=== PATIENT | female | born 1960 | race Caucasian/White ===

== ENCOUNTER 2021-02-19 05:38 | Outpatient (CLI) | payer OTHER ==
[~2021-02-19] VITALS: Ht 165.1 cm; Wt 68.2 kg
[2021-02-22] MEDS ORDERED: MV-M1TAB57 PO (13:32)
[2021-02-22] MEDS ORDERED: OMEP20TA7 PO (13:32)
== END 2021-02-22 13:38 | disposition home or self-care (01) ==
LOC: PREOP 05:38
PROVIDERS: ATTEND Obstetrics & Gynecology
DX: Z01.818 Encounter for other preprocedural examination (principal)

== ENCOUNTER 2021-02-26 06:06 | Day surgery (SDC) | payer OTHER ==
[2021-02-26] VITALS (10 sets, daily range): BP systolic 114–141; BP diastolic 57–93
[~2021-02-26] VITALS: Ht 165 cm; Wt 68.2 kg
[~2021-02-26 06:06] MED LIST: MV-M1TAB57 PO; OMEP20TA7 PO
[2021-02-26] MEDS ORDERED: ceFAZolin 2 GM IV Premixed 50 ML IV ONE (06:15)
[2021-02-26] MEDS ORDERED: metroNIDAZOLE 500MG/100ML IVPB 100 ML IV ONE (06:15)
[2021-02-26] MEDS ORDERED: LACTATED RINGERS 1,000 ML IV PRN (06:15)
[2021-02-26 06:22] LABS: BILIRUBIN,URINE NEGATIVE (NEGATIVE); CLARITY,URINE CLEAR; COLOR,URINE YELLOW; GLUCOSE, URINE (UA) NEGATIVE (NEGATIVE); KETONES,URINE 1+ (NEGATIVE); LEUKOCYTE ESTERASE ,URINE 1+ (NEGATIVE); NITRITE,URINE NEGATIVE (NEGATIVE); PROTEIN,URINE NEGATIVE (NEGATIVE)
[2021-02-26] MEDS ORDERED: LIDOCAINE PF 2% 5 ML (XYLOCAINE) VIAL ONE (06:48)
[2021-02-26] MEDS ORDERED: MIDAZOLAM 2 MG/2 ML (VERSED) VIAL ONE (06:48)
[2021-02-26] MEDS ORDERED: ONDANSETRON 4 MG/2 ML (SDV) Z0FRAN ONE ×2 (06:48→06:58)
[2021-02-26] MEDS ORDERED: SEVOFLURANE (ULTANE) 15 ML INHAL SOLN ONE ×2 (06:48→10:55)
[2021-02-26] MEDS ORDERED: proPOfol 200 MG/20 ML (DIPRIVAN) VIAL IV ONE (06:48)
[2021-02-26] MEDS ORDERED: fentaNYL INJ 100 MCG/2 ML AMP ONE (06:48)
[2021-02-26] MEDS ORDERED: NS (IVPB) 100 ML ONE (06:54)
[2021-02-26] MEDS ORDERED: VASOPRESSIN INJECTION 20 UNIT/ML VIAL ONE (06:54)
[2021-02-26] MEDS ORDERED: LIDOCAINE/EPI 1%-1:200,000 (XYLOCAINE) 30 ML VIAL ONE (06:54)
[2021-02-26] MEDS ORDERED: ESTRADIOL VAGINAL CREAM 42.5 GM (ESTRACE) VG ONE (06:54)
[2021-02-26] MEDS ORDERED: FAMOTIDINE 20MG/2ML IV (PEPCID) ONE (06:58)
[2021-02-26] MEDS ORDERED: SCOPOLAMINE 1.5 MG (TRANSDERM-SCOP) PATCH ONE (06:58)
[2021-02-26] MEDS ORDERED: metroNIDAZOLE 500MG/100ML IVPB 100 ML ONE (06:58)
[2021-02-26] MEDS ORDERED: ceFAZolin 2 GM IV Premixed 50 ML ONE (06:59)
[2021-02-26 07:00] LABS: BASOPHILS # (AUTO) 0.1 10^3/uL (0.0-0.1); BASOPHILS % (AUTO) 1 % (0-10); EOSINOPHILS # (AUTO) 0.6 10^3/uL (0.0-0.3); EOSINOPHILS % (AUTO) 8 % (0-10); HEMATOCRIT 37 % (35-52); HEMOGLOBIN 12.4 g/dL (11.5-16.0); LYMPHOCYTES # (AUTO) 3.3 10^3/uL (1.0-4.0); LYMPHOCYTES % (AUTO) 41 % (12-44); MEAN CORPUSCULAR HEMOGLOBIN 31 pg (25-34); MEAN CORPUSCULAR HGB CONC 33 g/dL (32-36); MEAN CORPUSCULAR VOLUME 94 fL (80-99); MEAN PLATELET VOLUME 10.6 fL (9.0-12.2); MONOCYTES % (AUTO) 12 % (0-12); NEUTROPHILS # (AUTO) 3.1 10^3/uL (1.8-7.8); NEUTROPHILS % (AUTO) 39 % (42-75); PLATELET COUNT 368 10^3/uL (130-400)
[2021-02-26] MEDS ORDERED: FAMOTIDINE 20MG/2ML IV (PEPCID) IV ONE (07:00)
[2021-02-26] MEDS ORDERED: SCOPOLAMINE 1.5 MG (TRANSDERM-SCOP) PATCH TOP ONE (07:00)
[2021-02-26] MEDS ORDERED: ONDANSETRON 4 MG/2 ML (SDV) Z0FRAN IV ONE (07:00)
[2021-02-26 07:05] LABS: BACTERIA,URINE FEW /HPF
--- NOTE | 2021-02-26 07:57 | Progress Note-Pre Operative ---
Pre-Operative Progress Note H&P Reviewed The H&P was reviewed, patient examined and no changes noted. Date Seen by Provider: Feb 26, 2021 Time Seen by Provider: 08:00 Date H&P Reviewed: Feb 26, 2021 Time H&P Reviewed: 08:00 Pre-Operative Diagnosis: incomplete uterovaginal prolapse, stress incontinence FARHAN DALLAS DO Feb 26, 2021 07:57
--- NOTE | 2021-02-26 08:21 | Progress Note-Pre Operative ---
Pre-Operative Progress Note H&P Reviewed The H&P was reviewed, patient examined and no changes noted. Date Seen by Provider: Feb 26, 2021 Time Seen by Provider: 08:21 Date H&P Reviewed: Feb 26, 2021 Time H&P Reviewed: 08:21 Pre-Operative Diagnosis: LUIS HORN MD Feb 26, 2021 08:21
--- NOTE | 2021-02-26 08:45 | Progress Note-Post Operative ---
Post-Operative Progess Note Surgeon (s)/Insurance Verification Representative (s) Surgeon LUIS ANTONIO MD Insurance Verification Representative: FARHAN DALLAS DO Pre-Operative Diagnosis ABDIEL Post-Operative Diagnosis SAME Procedure & Operative Findings Date of Procedure 02/26/21 Procedure Performed/Findings PVS AND CYSTOSCOPY Anesthesia Type GENERAL Estimated Blood Loss Estimated blood loss (mL): NEGLIGIBLE Specimens/Packing Specimens Removed NONE Packing: ESTRACE VAG PACK LUIS ANTONIO MD Feb 26, 2021 08:45
[2021-02-26] MEDS ORDERED: HYDROmorphone 2 MG/ML VIAL (DILAUDID) ONE (08:52)
[2021-02-26] MEDS ORDERED: GLYCOPYRROLATE 0.2 MG/ML (ROBINUL) 2 ML VIAL ONE (09:56)
[2021-02-26] MEDS ORDERED: NEOSTIGMINE 3 MG/3 ML VIAL ONE (09:56)
[2021-02-26] MEDS ORDERED: KETOROLAC 30 MG/ML VIAL ONE (10:26)
[2021-02-26] MEDS: KETOROLAC 30 MG/ML VIAL IV SCH ×2 (10:30→17:54)
--- NOTE | 2021-02-26 10:44 | Operative Report ---
Operative Report Date of Procedure/Surgery Feb 26, 2021 Surgeon (s) FARHAN DALLAS DO Intermediate Card Tender (s): Pablo Pederson, MS III Post-Operative Diagnosis SAME Procedure Performed RATH, BSO, Anterior colporrhaphy PV sling ([place]) Description of Procedure Anesthesia Type: General Estimated blood loss (mL): minimal Specimen(s) collected/removed uterus, tubes and ovaries Packing: ESTRACE VAG PACK Description of the Procedure After informed consent was obtained, patient was taken into the operating room where general anesthetic was found to be adequate. She was prepped and draped in the usual sterile fashion in the dorsal lithotomy position. A Hernandez catheter was placed. A speculum was placed in the vagina. The cervix was visualized and the anterior lip was grasped with a sharp toothed tenaculum. The uterus was then noted to be prolapsed out of the vagina about 4 cm. There was a cystocele, but there was still posterior support and minimal rectocele. It was then reduced and sounded to a depth was approximately 6.5 centimeters. I placed the Jessica device (6 cm) and a 3.5 cm collar was advanced over the cervix. I inserted the Jessica without difficulty, inflating the balloon and securing it around the fornix of the cervix. The collar was then secured with sutures at 12 o'clock. Attention was then turned to the patient's abdomen. The skin was injected with 0.1% lidocaine with epinephrine. A supraumbilical incision was made about 8 mm in length. A Veress needle was inserted and I confirmed intraabdominal placement with a drop in pressure and the saline drop test. The opening pressure was 6 mmHg. I then insufflated the abdomen to a maximum of 15 mmHg with warmed CO2 gas. I placed an additional 8 mm trocar in the left abdomen lateral to the umbilicus approximately 15 cm lateral. The second and third robotic port was placed about 12 cm lateral to the right and left of the umbilical placement. 0.1% lidocaine with epinephrine was injected prior to placement of all trocars. These were 8 mm trocars. These were placed under direct visualization of the laparoscope. When all placements were confirmed, the patient was placed in steep Trendelenburg al lowing adequate visualization. The robot was brought in for docking. The docking was accomplished without difficulty. It was noted that the surgery could be accomplished robotically I then took over the command of the robot utilizing the synchroseal and monopolar carmen. I visualized the round ligaments bilaterally and grasped them and cauterized with bipolar cautery and then cut with my carmen. I then grasped the infundibulopelvic ligaments bilaterally with the synchroseal and then cut with the monopolar carmen. I then moved my dissection to the posterior leaves of the broad ligament. I dissected the posterior leaves of the broad ligament off the uterine arteries skeletonizing them bilaterally. I then took a second clamp with the synchroseal and with the carmen, transected the vessels away from the lateral aspect to the cervical stroma. I dissected the anterior peritoneum off the lower uterine segment. I continually pushed the bladder back and I took excessively great care and I was eventually able to dissect the vesicouterine peritoneum off the lower uterine segment. the high school assistant principal took great care to elevate the uterus into the abdomen toward the patient's head to prevent ureteral injury. I then dissected in a V fashion towards the midline between the uterosacral ligaments. This allowed me to skeletonize the uterine vessels bilaterally. The balloon on the JESSICA was insufflated. This allowed me to see the JESSICA circumferentially. I then performed a colpotomy anteriorly and then amputate with cervix away from the vaginal fornix. I then continued the colpotomy circumferentially. Once this was performed, the high school assistant principal removed the uterus through the vagina. The high school assistant principal then left a sponge in the vagina to maintain the pneumoperitoneum. . I then began closure of the vaginal cuff. I closed the apices of the vaginal cuff with 2-0 Vicryl V lock sutures with a colposuspension through the uterosacral ligaments. This suspended the apices of the vaginal cuff. I extended this to the midline from both sides and overlapped the V lock sutures in the midline. Excellent closure is noted and hemostasis is achieved. All the needles were removed from the patient's abdomen. Now, the robotic instruments were removed and the robot was docked back to laparoscopy. The pelvis was irrigated. There was no active bleeding noted. Bilateral ureters were seen the entire time during the surgery and were peristalsing. There was no excessive bleeding noted. The trocars were removed under direct visualization. The laparoscopic sites were visualized and found to be hemostatic. The skin incisions were closed with 4-0 Monocryl in a subcuticular fashion and then with Skin Affix. Op sites were placed over the incision sites. The instruments were removed from the vagina and I noted there were no abrasions. Attention was now turned to the vagina. The anterior vaginal epithelium was grasped in the midline with Allis clamps. I then injected the vaginal epithelium with dilute vasopressin. A Midline incision was made and the vaginal epithelium was then dissected off the vesicovaginal fascia laterally to the white line. I then plicated the anterior vaginal fascia in the midline with interrupted stitches of 2-0 Vicryl. Due to the large cystocele, two layers were used. I then excised the excess vaginal epithelium. At this point, Dr. Malloy placed the pubovaginal sling and this will be dictated under separate cover. I closed the incision with 2-0 Vicryl in a running fashion. Vaginal estrogen cream was then placed in the vagina and the vagina was packed with vaginal packing. Sponge, lap, needle and instrument counts correct times two. Patient was awakened and taken to recovery in a stable condition Findings of the Procedure 4+ cystocele 3-4+ uterine prolapse small rectocele Stress incontinence Allergies and Home Medications Allergies Coded Allergies: No Known Drug Allergies (Unverified , 02/26/21) Patient Home Medication List Home Medication List Reviewed: Yes Acetaminophen (Acetaminophen) 500 Mg Tablet, 1,000 MG PO Q8HR Prescribed by: FARHAN DALLAS on 02/26/211333 Ciprofloxacin HCl (Cipro) 500 Mg Tablet, 500 MG PO BID Prescribed by: JUAN JOSÉ ZEPEDA on 02/27/21 1000 Docusate Sodium (Docusate Sodium) 100 Mg Capsule, 100 MG PO BID Prescribed by: FARHAN DALLAS on 02/26/21 133 Ibuprofen (Ibu) 600 Mg Tablet, 600 MG PO Q6HR Prescribed by: FARHAN DALLAS on 02/26/21 133 Mv-Mn/Folic Acid/Calcium/Vit K (Women's 50 Plus Multivit Tab) 1 Each Tablet, 1 EACH PO DAILY, (Reported) Entered as Reported by: TRENTON HOWARD on 02/22/211331 Last Action: Reviewed Omeprazole (Omeprazole) 20 Mg Tablet., 20 MG PO BID, (Reported) Entered as Reported by: TRENTON HOWARD on 02/22/211331 Last Action: Reviewed Simethicone (Simethicone) 80 Mg Tab.chew, 80 MG PO Q6H PRN for GAS Prescribed by: FARHAN DALLAS on 02/26/211334 FARHAN DALLAS DO Feb 26, 2021 10:44
[2021-02-26] MEDS ORDERED: ONDANSETRON 4 MG (ZOFRAN) ORAL DISSOLVE TAB PO PRN (10:45)
[2021-02-26] MEDS ORDERED: morphine INJ 4 MG/ML 1 ML (VIAL/SYRINGE) IV PRN (10:45)
[2021-02-26] MEDS ORDERED: CHLORASEPTIC LOZENGE MM PRN (10:45)
[2021-02-26] MEDS ORDERED: NALOXONE 0.4 MG/ML 1 ML (NARCAN) VIAL IV PRN ×2 (10:45)
[2021-02-26] MEDS ORDERED: SIMETHICONE 40 MG/0.6 ML (MYLICON DROPS) 30 ML BTL PO PRN (10:45)
[2021-02-26] MEDS ORDERED: ONDANSETRON 4 MG/2 ML (SDV) Z0FRAN IVP PRN (11:00)
[2021-02-26] MEDS ORDERED: HYDROmorphone 2 MG/ML VIAL (DILAUDID) IV ONE (11:00)
[2021-02-26] MEDS ORDERED: IBUPROFEN 600 MG (MOTRIN) TAB PO ONE (12:46)
[2021-02-26] MEDS: IBUPROFEN 600 MG (MOTRIN) TAB PO SCH (12:49)
[2021-02-26] MEDS ORDERED: IBUP-844 PO (13:34)
[2021-02-26] MEDS ORDERED: DOCU100C37 PO (13:34)
[2021-02-26] MEDS ORDERED: ACET-93 PO (13:34)
[2021-02-26] MEDS ORDERED: SIME80TA16 PO (13:35)
--- NOTE | 2021-02-26 13:38 | Discharge Inst-Women's Service ---
Discharge Inst-Women's Serv Depart Medication/Instructions New, Converted or Re-Newed RX: Transmitted to Pharmacy (oxycodone sent from clinic chart) Instructions Procedure - Robotic assisted total hysterectomy, bilateral salpingoophorectomy, anterior colporrhaphy, pubovaginal sling nothing in the vagina until cleared by Dr. Beck (at least 8 weeks) no lifting over 25 lbs no driving for 1 weeks Final Diagnosis incomplete uterovaginal prolapse cystocele stress incontinence Problems Reviewed?: Yes Consults/Follow Up Additional Follow Up: Yes (1-2 weeks for incision check 8-10 weeks for pelvic exam) Activity Activity: Activity as Tolerated (see above) Driving Instructions: No Driving for 1 Week NO SMOKING: NO SMOKING Nothing Inside Vagina: No Douching, No [place], No Tampons Diet Discharge Diet: No Restrictions Symptoms to Report to : Bleeding Excessive, Pain Increased, Fever Over 101 Degrees F, Vaginal Bleeding Increase, Cramps in Feet or Legs, Vaginal Discharge Foul For Any Problems or Questions: Contact Your Physician Skin/Wound Care Infection Signs and Symptoms: Increased Redness, Foul Odor of Wound, Increased Drainage, Skin Itchy or Has a Rash, Increased Swelling, Temperature Above 101 F Operative Area Clean and Dry: You May Remove Bandage (on Monday, or if soiled/wet) Stitches/Suri/Dermabond: Dermabond Bathing Instructions: FARHAN Caicedo DO Feb 26, 2021 13:38
[2021-02-26] MEDS: ACETAMINOPHEN 500 MG TAB (TYLENOL) PO SCH ×2 (14:00→22:32)
[2021-02-26] MEDS: SIMETHICONE 80 MG (MYLICON) CHEW PO SCH ×3 (14:43→19:44)
--- NOTE | 2021-02-26 17:07 | OPERATIVE REPORT ---
DATE OF SERVICE: 02/26/2021 PREOPERATIVE DIAGNOSIS: On my part, stress urinary incontinence. POSTOPERATIVE DIAGNOSIS: On my part, stress urinary incontinence. OPERATION PERFORMED: Pubovaginal sling and cystoscopy. SURGEON: Carlos Alberto Antonio MD. DYE LINE OPERATOR: Dr. Beck. ANESTHESIA: General. COMPLICATIONS: None. DESCRIPTION OF PROCEDURE: Under satisfactory general anesthesia and after Dr. Beck performed the first part of her surgery that she will dictate, we inserted a Hernandez catheter draining clear urine. I passed the Desara 2 sling device on both sides using the described technique. The sling was sitting nicely under the mid urethra with no twisting, tension and passage of a curved hemostat easily under it. I removed the Hernandez catheter to perform a cystoscopy, which showed the integrity of the bladder and urethra, no foreign body. Ureteric orifices were normal with clear effluxes and presence of the sling under the mid urethra. I left the bladder half full, removed the cystoscope, and performed a manual Valsalva maneuver that was negative. I reinserted the Hernandez catheter draining clear fluid. Estimated blood loss on my part was negligible and Dr. Beck's procedure was the rest of his surgery that she will dictate. Job ID: [id number] DocumentID: [id number] Dictated Date: 02/26/2021 12:29:45 Top Screw Date: 02/26/2021 17:06:38 Dictated By: CARLOS ALBERTO ANTONIO MD
[2021-02-26] MEDS: LACTATED RINGERS 1,000 ML IV SCH ×3 (18:12→22:05)
[2021-02-26] MEDS ORDERED: SENNA W/DOCUSATE (SENOKOT S) TABLET PO SCH (21:00)
[2021-02-27] MEDS ORDERED: IBUPROFEN 600 MG (MOTRIN) TAB PO ONE (02:42)
[2021-02-27] MEDS: IBUPROFEN 600 MG (MOTRIN) TAB PO SCH (02:43)
[2021-02-27] MEDS: KETOROLAC 30 MG/ML VIAL IV SCH ×2 (02:43→05:26)
[2021-02-27 03:47] VITALS: BP 110/67
[2021-02-27] MEDS: ACETAMINOPHEN 500 MG TAB (TYLENOL) PO SCH (05:27)
[2021-02-27 08:00] VITALS: BP 116/70
--- NOTE | 2021-02-27 08:06 | Anesthesia-General Post-Op ---
General Patient Condition Mental Status/LOC: Same as Preop Cardiovascular: Satisfactory Nausea/Vomiting: Absent Respiratory: Satisfactory Pain: Controlled Complications: Absent Post Op Complications Complications None Follow Up Care/Instructions Patient Instructions None needed. Anesthesia/Patient Condition Patient Condition Patient is doing well, no complaints, stable vital signs, no apparent adverse anesthesia problems. No complications reported per nursing. D/C home per [facility] Criteria: Yes SAMMIE LEBRON CRNA Feb 27, 2021 08:06
[2021-02-27] MEDS ORDERED: DOCUSATE SODIUM 100 MG (COLACE) CAP PO SCH (09:00)
[2021-02-27] MEDS ORDERED: PANTOPRAZOLE 40 MG (PROTONIX) TAB PO SCH (09:00)
[2021-02-27] MEDS: SIMETHICONE 80 MG (MYLICON) CHEW PO SCH (09:01)
[2021-02-27] MEDS ORDERED: CIPR-225 PO (10:00)
== END 2021-02-27 10:33 ==
LOC: SDC 06:06 → 4TH 11:40 → SDC 02-27 10:33
PROVIDERS: ATTEND Obstetrics & Gynecology
DX: N39.3 Stress incontinence (female) (male) (principal); N81.2 Incomplete uterovaginal prolapse; N72 Inflammatory disease of cervix uteri; N80.0 Endometriosis of uterus; N83.8 Other noninflammatory disorders of ovary, fallopian tube and broad ligament; Z79.899 Other long term (current) drug therapy; Z79.2 Long term (current) use of antibiotics; Z79.1 Long term (current) use of non-steroidal anti-inflammatories (NSAID); Z79.82 Long term (current) use of aspirin; Z87.891 Personal history of nicotine dependence; Z90.49 Acquired absence of other specified parts of digestive tract
CPT/HCPCS: 57240; 57288; 58571; 81000; 85025; 86850; 86900; 86901; 87081; 87088; 88307; C1771; 36415